=== PATIENT | female | born 2000 ===

== ENCOUNTER 2021-04-13 20:31 | Emergency (ER) | payer BC ==
[~2021-04-13] VITALS: Ht 152.4 cm; Wt 63.0 kg
[2021-04-13 21:47] VITALS: BP 116/70
== END 2021-04-13 21:48 | disposition home or self-care (01) ==
LOC: ER 20:32
DX: Z20.822 Contact with and (suspected) exposure to COVID-19 (principal)
CPT/HCPCS: 87635; 99283; C9803